=== PATIENT | male | born 1990 | race African-American/Black ===

== ENCOUNTER 2022-11-27 16:00 | Emergency (ER) | payer MEDICAID ==
[~2022-11-27] VITALS: Ht 177.8 cm; Wt 83.9 kg
[2022-11-27 16:08] VITALS: O2SAT 100
[2022-11-27] MEDS ORDERED: FLUORESCEIN SODIUM 1MG/STRIP LEFTEYE ONE (16:30)
[2022-11-27] MEDS ORDERED: TETRACAINE 0.5% OPHTH DROPS 4ML LEFTEYE ONE (16:30)
[2022-11-27] MEDS ORDERED: ERYT1OIN6 EACHEYE (17:38)
[2022-11-27 17:56] VITALS: BP 116/74; PULSE 84; RESP 20; TEMP 97.7
== END 2022-11-27 17:57 | disposition home or self-care (01) ==
LOC: ER 16:00
DX: T15.92XA Foreign body on external eye, part unspecified, left eye, initial encounter (principal); X58.XXXA Exposure to other specified factors, initial encounter; Y93.89 Activity, other specified; Y92.89 Other specified places as the place of occurrence of the external cause; Y99.8 Other external cause status
CPT/HCPCS: 99284